=== PATIENT | female | born 1980 | race Two or more races ===

== ENCOUNTER 2024-09-27 21:01 | Inpatient (IN) | payer OTHER ==
[~2024-09-27] VITALS: Ht 157.5 cm; Wt 80.7 kg
[2024-09-27] MEDS ORDERED: OMEPRAZOLE-BIC1 EACH PO (21:24)
--- NOTE | 2024-09-27 21:27 | NUR ---
PACIENTE ALERTA Y ORIENTADA X3. REFIERE DOLOR ABDOMINAL DESDE ANOCHE. PACIENTE CON HX DE DIVERTICULOS. SE ESTIMAN VITALES Y SE UBICA.
[2024-09-27] MEDS ORDERED: FAMOtidine 10 MG/ML (4ML VIAL) IV ONE (22:00)
[2024-09-27] MEDS ORDERED: KETOROLAC TROMETHAMINE 60 MG VIAL IM ONE (22:00)
[2024-09-27] MEDS ORDERED: METRONIDAZOLE/SODIUM CHLORIDE 500 MG/100 ML PIGGYBACK IV ONE (22:00)
[2024-09-27] MEDS ORDERED: 0.9 % SODIUM CHLORIDE 1,000 ML IV ONE (22:00)
[2024-09-27] MEDS ORDERED: ONDANSETRON HCL 2 MG/ML VIAL IV ONE (22:00)
[2024-09-27] MEDS ORDERED: CIPROFLOXACIN IN 5 % DEXTROSE 400 MG/200 ML PIGGYBAG IV ONE (22:00)
--- NOTE | 2024-09-27 22:36 | NUR ---
SE ORIENTA PTE SOBRE TX A SEGUIR, LA MISMA REFIERE ENTENDER. SE [place] MUESTRA DE LAB, SE CANALIZA Y SE ADMINISTRA MED JANIS ORDEN MEDICA
[2024-09-28 00:10] LABS: HEMATOCRIT 43.2 % (36.0-45.00); HEMOGLOBIN 14.6 g/dL (12.0-15.00); MEAN CELL VOLUME 90.5 fL (80.00-100.00); MEAN CORPUSCULAR HEMOGLOBIN 30.7 pg (27.00-32.0); MEAN CORPUSCULAR HGB CONC 33.9 g/dl (32.0-36.0); PLATELET COUNT 220 K/uL (150-450); RED BLOOD COUNT 4.78 M/uL (4.00-6.00); RED CELL DISTRIBUTION WIDTH 12.7 % (11.5-14.5)
[2024-09-28 00:21] LABS: BILIRUBIN TOTAL 0.98 mg/dL (0.3-1.2); CALCIUM 9.3 mg/dL (8.5-10.1); CREATININE SERUM 0.66 mg/dL (0.55-1.02); GFR 96.41; GLOBULINA 3.9 G/DL (2.4-3.5); POTASSIUM 3.79 mEq/L (3.5-5.1); TOTAL PROTEIN 7.9 gm/dL (6.4-8.2)
[2024-09-28 00:54] LABS: PH,URINE 5.5 (5.0-8.0); URINE APPEARANCE Clear; URINE BILIRRUBIN Negative (NEGATIVE); URINE BLOOD Negative; URINE COLOR Yellow; URINE GLUCOSE Negative (NEGATIVE); URINE KETONE Trace (NEGATIVE); URINE LEUKOCYTE Negative; URINE NITRATE Negative; URINE PROTEIN Negative (NEGATIVE); URINE UROBILINOGEN 0.2 E.U./dl
[2024-09-28 00:58] LABS: URINE BACTERIA 1625.2 uL (0.0-1933); URINE EPITHELIAL CELLS 59.1 uL (0.0-38.8); URINE WBC 16.1 uL (0.0-23.2)
[2024-09-28] MEDS ORDERED: MEPERIDINE HCL/PF 25 MG/ML VIAL IM STA (03:11)
[2024-09-28] MEDS ORDERED: PROMETHAZINE HCL 25 MG/ML AMPUL IM STA (03:12)
[2024-09-28] MEDS ORDERED: CIPROFLOXACIN IN 5 % DEXTROSE 200 ML IV SCH (09:19)
[2024-09-28] MEDS ORDERED: METRONIDAZOLE/SODIUM CHLORIDE 100 ML IV SCH (09:19)
[2024-09-28] MEDS ORDERED: PANTOPRAZOLE SODIUM 40 MG/VIAL VIAL IV SCH (09:20)
[2024-09-28] MEDS ORDERED: 0.9 % SODIUM CHLORIDE 1,000 ML IV SCH (09:30)
[2024-09-28] MEDS ORDERED: MEPERIDINE HCL/PF 50 MG/ML VIAL IM PRN (09:30)
[2024-09-28 10:05] VITALS: BP 118/79
[2024-09-28 15:45] VITALS: BP 103/67; O2SAT 95
[2024-09-29 01:14] VITALS: BP 103/66; O2SAT 97
[2024-09-29 08:00] VITALS: BP 111/67; O2SAT 95
[2024-09-29 16:24] VITALS: BP 122/61; O2SAT 95
[2024-09-29] MEDS ORDERED: PANTOPRAZOLE SODIUM 40 MG/VIAL VIAL IV ONE (21:15)
[2024-09-29] MEDS ORDERED: HYOSCYAMINE SULFATE 0.125 MG TAB.SUBL SL ONE (21:15)
[2024-09-29] MEDS ORDERED: ONDANSETRON HCL 2 MG/ML VIAL IV PRN (23:30)
[2024-09-30 01:55] VITALS: BP 100/64; O2SAT 99
[2024-09-30] MEDS ORDERED: ACETAMINOPHEN 500 MG GEL..CAP PO SCH (02:00)
[2024-09-30 08:00] VITALS: BP 105/73; O2SAT 95
[2024-09-30 16:00] VITALS: BP 134/74; O2SAT 97
[2024-10-01 00:28] VITALS: BP 122/67; O2SAT 97
[2024-10-01 06:53] LABS: HEMATOCRIT 39.4 % (36.0-45.00); HEMOGLOBIN 13.5 g/dL (12.0-15.00); MEAN CELL VOLUME 88.9 fL (80.00-100.00); MEAN CORPUSCULAR HEMOGLOBIN 30.5 pg (27.00-32.0); MEAN CORPUSCULAR HGB CONC 34.3 g/dl (32.0-36.0); PLATELET COUNT 235 K/uL (150-450); RED BLOOD COUNT 4.43 M/uL (4.00-6.00); RED CELL DISTRIBUTION WIDTH 12.9 % (11.5-14.5)
[2024-10-01 07:35] LABS: CALCIUM 8.8 mg/dL (8.5-10.1); CREATININE SERUM 0.59 mg/dL (0.55-1.02); GFR 109.73; POTASSIUM 3.58 mEq/L (3.5-5.1)
[2024-10-01 08:11] VITALS: BP 117/78; O2SAT 97
== END 2024-10-01 16:52 | disposition home or self-care (01) | DRG 392 ==
LOC: ER 21:04 → SURH 09-28 10:16 → SEC-K 09-28 10:16 → SURH 09-28 13:08
PROVIDERS: General Practice; ADMIT Student in an Organized Health Care Education/Training Program; ATTEND Student in an Organized Health Care Education/Training Program
DX: K57.32 Diverticulitis of large intestine without perforation or abscess without bleeding (principal); R10.9 Unspecified abdominal pain; Z76.5 Malingerer [conscious simulation]; Z20.822 Contact with and (suspected) exposure to COVID-19

== ENCOUNTER 2025-04-01 05:32 | Day surgery (SDC) | payer OTHER ==
[~2025-04-01 05:32] MED LIST: OMEPRAZOLE-BIC1 EACH PO
[2025-04-01] MEDS ORDERED: DIPHENHYDRAMINE HCL 50 MG/ML VIAL 1ML IV ONE (08:45)
[2025-04-01] MEDS ORDERED: fentaNYL CITRATE 50 MCG/ML AMPUL IV PUSH ONE (08:45)
[2025-04-01] MEDS ORDERED: MIDAZOLAM HCL 2 MG/2 ML VIAL IV ONE (08:45)
== END 2025-04-01 10:25 | disposition home or self-care (01) ==
LOC: AMB-ENDOS 05:32
PROVIDERS: ATTEND Colon & Rectal Surgery
DX: K63.5 Polyp of colon (principal); K62.1 Rectal polyp; K57.30 Diverticulosis of large intestine without perforation or abscess without bleeding; R19.4 Change in bowel habit; Z91.018 Allergy to other foods; Z88.8 Allergy status to other drugs, medicaments and biological substances

== ENCOUNTER 2025-08-21 13:26 | Emergency (ER) | payer OTHER ==
[~2025-08-21] VITALS: Ht 157.5 cm; Wt 81.6 kg
[2025-08-21] MEDS ORDERED: PANTOPRAZOLE SODIUM 40 MG/VIAL VIAL IV STA (15:52)
[2025-08-21] MEDS ORDERED: MORPHINE SULFATE 2 MG/ML SYRINGE IV STA (15:52)
[2025-08-21] MEDS ORDERED: ONDANSETRON HCL 2 MG/ML VIAL IM STA (15:53)
[2025-08-21] MEDS ORDERED: 0.9 % SODIUM CHLORIDE 500 ML IV STA (15:53)
[2025-08-21] MEDS ORDERED: ONDANSETRON HCL 2 MG/ML VIAL ONE (16:05)
[2025-08-21 16:51] LABS: BASO % 0.7 % (0.1-1.2); EOS # 0.16 (0.04-0.54); EOS % 2.4 % (0.7-7.0); LYMPH # 2.78 (1.18-3.74); LYMPH % 41.1 % (19.3-53.1); MEAN PLATELET VOLUME 10.90 fl (9.4-12.4); MONO # 0.59 (0.24-0.82); MONO % 8.7 % (4.7-12.5); NEUT # 3.16 (1.56-6.13); NEUT % 46.8 % (34.0-71.1); RED CELL DISTRIBUTION WIDTH 12.0 % (11.6-14.4)
[2025-08-21 17:14] LABS: ALT/SGPT 92.0 U/L (12-78); AST/SGOT 74.0 U/L (15-37); BILIRUBIN TOTAL 0.49 mg/dL (0.3-1.2); BUN CREA RATIO 13.0 (7.0-25.0); CREATININE SERUM 0.63 mg/dL (0.55-1.02); GFR 101.29; GLOBULINA 3.8 G/DL (2.4-3.5); GLUCOSE FASTING 91.0 mg/dL (65-100); OSMOLALITY SERUM 283.0 MOSM/KG (275-295)
[2025-08-21 17:48] LABS: URINE APPEARANCE Clear; URINE BILIRRUBIN Negative (NEGATIVE); URINE BLOOD Negative; URINE COLOR Yellow; URINE GLUCOSE Negative (NEGATIVE); URINE KETONE Negative (NEGATIVE); URINE LEUKOCYTE Negative; URINE NITRATE Negative; URINE PROTEIN Negative (NEGATIVE); URINE UROBILINOGEN 0.2 E.U./dl
[2025-08-21 17:53] LABS: URINE BACTERIA 131.9 uL (0.0-1933); URINE EPITHELIAL CELLS 17.4 uL (0.0-38.8); URINE RBC 5.4 uL (0.0-20.8); URINE WBC 5.0 uL (0.0-23.2)
[2025-08-21 17:59] LABS: URINE CAST 0.14 uL (0.0-1.40)
[2025-08-21] MEDS ORDERED: DICY20TA PO (21:57)
[2025-08-21] MEDS ORDERED: PEPCID AC20 MG PO (21:57)
== END 2025-08-21 23:04 | disposition home or self-care (01) ==
LOC: ER 13:27
PROVIDERS: General Practice
DX: R10.9 Unspecified abdominal pain (principal); K64.8 Other hemorrhoids; Z88.8 Allergy status to other drugs, medicaments and biological substances; J45.909 Unspecified asthma, uncomplicated; G43.909 Migraine, unspecified, not intractable, without status migrainosus; R42 Dizziness and giddiness; K57.30 Diverticulosis of large intestine without perforation or abscess without bleeding; Z90.49 Acquired absence of other specified parts of digestive tract

== ENCOUNTER 2025-10-12 00:21 | Emergency (ER) | payer OTHER ==
[~2025-10-12] VITALS: Ht 157.5 cm; Wt 83.0 kg
[~2025-10-12 00:21] MED LIST changes: +DICY20TA PO; +PEPCID AC20 MG PO
[2025-10-12] MEDS ORDERED: ALBUTEROL0.63 MG/3 (01:11)
[2025-10-12] MEDS ORDERED: METHYLPREDNISOLONE SOD SUCC 125 MG VIAL IV STA (03:19)
[2025-10-12] MEDS ORDERED: ALBUTEROL SULFATE 3 ML/2.5 MG AMPUL.NEB IH STA (03:20)
[2025-10-12 05:55] LABS: BASO % 0.4 % (0.1-1.2); EOS # 0.15 (0.04-0.54); EOS % 1.9 % (0.7-7.0); LYMPH # 3.86 (1.18-3.74); LYMPH % 48.2 % (19.3-53.1); MEAN PLATELET VOLUME 11.40 fl (9.4-12.4); MONO # 0.67 (0.24-0.82); MONO % 8.4 % (4.7-12.5); NEUT # 3.26 (1.56-6.13); NEUT % 40.6 % (34.0-71.1); RED CELL DISTRIBUTION WIDTH 12.5 % (11.6-14.4)
[2025-10-12 05:55] LABS: COVID-19 AG NEGATIVE (NEGATIVE)
[2025-10-12 06:01] LABS: BUN CREA RATIO 21.0 (7.0-25.0); CREATININE SERUM 0.53 mg/dL (0.55-1.02); GFR 123.65; GLUCOSE FASTING 111.0 mg/dL (65-100); OSMOLALITY SERUM 283.0 MOSM/KG (275-295)
[2025-10-12 07:58] LABS: URINE APPEARANCE Clear; URINE BILIRRUBIN Negative (NEGATIVE); URINE BLOOD Negative; URINE COLOR Yellow; URINE GLUCOSE Negative (NEGATIVE); URINE KETONE Negative (NEGATIVE); URINE LEUKOCYTE Trace; URINE NITRATE Negative; URINE PROTEIN Negative (NEGATIVE); URINE UROBILINOGEN 0.2 E.U./dl
[2025-10-12 08:00] LABS: URINE BACTERIA 343.1 uL (0.0-1933); URINE EPITHELIAL CELLS 50.4 uL (0.0-38.8); URINE RBC 11.4 uL (0.0-20.8); URINE WBC 14.5 uL (0.0-23.2)
[2025-10-12 08:37] LABS: URINE CAST 0.00 uL (0.0-1.40)
[2025-10-12 09:33] VITALS: BP 129/85; O2SAT 97
== END 2025-10-12 09:56 | disposition home or self-care (01) ==
LOC: ER 00:21
PROVIDERS: General Practice
DX: R14.0 Abdominal distension (gaseous) (principal); K76.0 Fatty (change of) liver, not elsewhere classified; Z20.822 Contact with and (suspected) exposure to COVID-19; Z87.09 Personal history of other diseases of the respiratory system; Z88.8 Allergy status to other drugs, medicaments and biological substances; Z91.018 Allergy to other foods